=== PATIENT | male | born 1995 | race Two or more races ===

== ENCOUNTER 2018-05-09 23:24 | Inpatient (IN) ==
[2018-05-10] MEDS ORDERED: Dexamethasone Inj 20 MG/5 ML Vial IV.PUSH ONE (00:25)
[2018-05-10] MEDS ORDERED: Sod Chloride 0.9% Inj 1,000 ML IV.SIG SCH (00:30)
--- NOTE | 2018-05-10 01:03 | ED ---
HPI General Chief Complaint: Fever Stated Complaint: Cold,Flu Sore throat Time Seen by Provider: 05/10/18 00:24 History of Present Illness HPI Narrative: This is a 23-year-old male who presents today with complaints of worsening sore throat and difficulty swallowing. Patient was seen 3 days ago and worked up for strep throat and influenza. At that time, he had a negative strep screen and negative influenza a and B test. He reports continued pain in his throat. He states it feels like needles when he swallows. He states he feels as though he is breathing out of a straw. There is associated nausea vomiting. He reports fevers and chills. There are no other complaints at the time of my examination. Related Data Previous Rx's Medication Instructions Recorded amoxicillin-pot clavulanate 1 tab PO Q12H #20 tab 05/05/18 [Augmentin] Allergies Allergy/AdvReac Type Severity Reaction Status Date / Time No Known Allergies Allergy Verified 05/05/18 09:26 Review of Systems ROS: all other systems reviewed are negative Constitutional Reports chills, Reports fever(s) and Reports night sweats Eyes Reports system reviewed and no additional complaints, except as docu ENT Denies headache(s), Denies nasal congestion, Denies nasal discharge, Reports neck pain (Submandibular lymph nodes) and Reports sore throat Cardiovascular Denies system reviewed and no additional complaints, except as docu Respiratory Denies system reviewed and no additional complaints, except as docu Gastrointestinal Denies abdominal pain, Reports nausea and Reports vomiting Genitourinary Reports system reviewed and no additional complaints, except as docu Musculoskeletal Reports system reviewed and no additional complaints, except as docu Neurologic Reports system reviewed and no additional complaints, except as docu and Reports other (No stiff neck. Patient has pain in his throat in the anterior neck.) [facility] Social History Social History Substance History: No History of Abuse Second Hand Smoke Exposure: No Smoking Status: Current every day smoker Tobacco Type: Cigarettes How Often Do You Have a Drink Containing Alcohol: 2 to 4 times a month Recent Travel in [facility] within the Last 8 Weeks: No Recent Out of Country Travel within the Last 8 Weeks: No Immunization History Tetanus Immunization: Unsure Exam Narrative Exam Narrative: GENERAL: Well-nourished, well-developed patient, in no acute respiratory distress.. SKIN: Focused skin assessment warm/dry. HEAD: Normocephalic/atraumatic. EYES: No scleral icterus. No injection or drainage. ENT: Mucosa pink and moist. Posterior pharynx with NECK: Supple, trachea midline. No JVD or lymphadenopathy. CARDIOVASCULAR: Regular rate and rhythm without murmurs, gallops, or rubs. RESPIRATORY: Breath sounds equal bilaterally. No accessory muscle use. GASTROINTESTINAL: Abdomen soft, non-tender, nondistended. MUSCULOSKELETAL: No cyanosis, or edema. BACK: Nontender without obvious deformity. No CVA tenderness. Course Initial Documented Vital Signs Temperature 99.8 F H 05/09/18 23:39 Pulse Rate 99 H 05/09/18 23:39 Respiratory Rate 18 05/09/18 23:39 Blood Pressure 153/68 H 05/09/18 23:39 Pulse Oximetry 96 05/09/18 23:39 Last Documented Vital Signs Temperature 99.8 F H 05/09/18 23:39 Pulse Rate 99 H 05/09/18 23:39 Respiratory Rate 18 05/09/18 23:39 Blood Pressure 153/68 H 05/09/18 23:39 Pulse Oximetry 98 05/10/18 00:32 Discharge Plan Physicians Team ED Provider: Calvin Lemus Primary Care Provider: Primary Care JujuiHeidy Rxs /Orders / Referrals /Forms Prescriptions: No Action amoxicillin-pot clavulanate [Augmentin] 875-125 mg tablet 1 tab PO Q12H Qty: 20 RF: 0 Status ED Status: With Doctor
[2018-05-10 01:05] LABS: Baso # (Auto) 0.1 th/mm3 (0.0-0.2); Baso % (Auto) 0.4 % (0.0-2.0); Eos % (Auto) 0.1 % (0.0-4.0); Hematocrit 44.6 % (39.0-51.0); Hemoglobin 15.8 gm/dL (13.0-17.0); Lymph # (Auto) 1.1 th/mm3 (1.0-4.8); Lymph % (Auto) 5.1 % (9.0-44.0); Mean Corpuscular HGB Conc 35.4 % (32.0-36.0); Mean Corpuscular Hemoglobin 30.3 pg (27.0-34.0); Mean Corpuscular Volume 85.5 fL (80.0-100.0); Mono # (Auto) 1.7 th/mm3 (0.0-0.9); Neut # (Auto) 18.7 th/mm3 (1.8-7.7); Neut % (Auto) 86.4 % (16.0-70.0); Platelet Count 282 th/mm3 (150-450); Red Blood Count 5.21 mil/mm3 (4.50-5.90); Red Cell Distribution Width 12.7 % (11.6-17.2); White Blood Count 21.7 th/mm3 (4.0-11.0)
[2018-05-10 01:18] LABS: Albumin 3.6 g/dL (3.4-5.0); Anion Gap 9 meq/L (5-15); Aspartate Aminotransferase 28 U/L (15-37); Blood Urea Nitrogen 10 mg/dL (7-18); Calcium 8.5 mg/dL (8.5-10.1); Carbon Dioxide 25.5 meq/L (21.0-32.0); Chloride 99 meq/L (98-107); Glomerular Filtration Rate 80 mL/min (>89); Glucose,Random 101 mg/dL (74-106); Potassium 3.3 meq/L (3.5-5.1); Sodium 133 meq/L (136-145)
[2018-05-10 01:19] LABS: Mono Screen Neg (Neg)
[2018-05-10 01:22] LABS: Alanine Aminotransferase 45 U/L (12-78); Alkaline Phosphatase 120 U/L (45-117); Total Protein 8.4 g/dL (6.4-8.2)
[2018-05-10] MEDS ORDERED: Ampicillin/Sulbactam Inj 3 GM in Sodium Chloride 0.9% Inj 100 ML IV.SIG ONE (01:47)
--- NOTE | 2018-05-10 02:13 | CT ---
EXAM DATE: 05/10/2018 2:07 AM EST AGE/SEX: 23 years / Male INDICATIONS: Sore throat past week. Possible abscess. CLINICAL DATA: This is the patient's initial encounter. Patient reports that signs and symptoms have been present for 1 week and indicates a pain score of 5/10. MEDICAL/SURGICAL HISTORY: None. None. RADIATION DOSE: 18.20 CTDI (mGy) COMPARISON: No prior exams available for comparison. TECHNIQUE: Helical acquisition was performed using a multirow detector CT scanner during the adminis tration of 70 ml Omnipaque 350 (iohexol) nonionic water-soluble contrast as a single exam dose. Usi ng automated exposure control and adjustment of the mA and/or kV according to patient size, radiation dose was kept as low as reasonably achievable to obtain optimal diagnostic quality images. DICOM fo rmat image data is available electronically for review and comparison. FINDINGS: Nasopharynx: The nasopharyngeal airway has a normal configuration. No mucosal thickening or mass is seen. Oropharynx: The intrinsic muscles of the tongue are symmetric. Symmetric swelling of the tonsillar p illars. The prevertebral soft tissues are not thickened. Larynx: The supraglottic, glottic, and infraglottic structures are intact. Parapharyngeal: The parapharyngeal space is intact. Salivary Glands: The parotid and submandibular glands are intact. Lymph Nodes: Symmetric diffuse enlargement of cervical lymph nodes Thyroid: Homogeneous enhancement without evidence of nodule. Bones: Unremarkable. Post Contrast: No abnormal areas of enhancement seen. CONCLUSION: 1. Symmetric tonsillar and enlargement and reactive cervical adenopathy. 2. No evidence of abscess. Electronically signed by: Kian Galvez MD 05/10/2018 2:12 AM EST
[2018-05-10] MEDS ORDERED: Bisacodyl 10 MG Supp RECTAL PRN (02:56)
--- NOTE | 2018-05-10 03:28 | XR ---
EXAM DATE: 05/10/2018 3:20 AM EST AGE/SEX: 23 years / Male INDICATIONS: Short of breath. CLINICAL DATA: This is the patient's initial encounter. Patient reports that signs and symptoms have been present for 1 day and indicates a pain score of 5/10. MEDICAL/SURGICAL HISTORY: None. None. COMPARISON: No prior exams available for comparison. FINDINGS: A single AP view of the chest demonstrates the lungs to be symmetrically aerated without evidence of mass, infiltrate or effusion. The cardiomediastinal contours are unremarkable. Osseous structures a re intact. CONCLUSION: Negative examination. Electronically signed by: Kian Galvez MD 05/10/2018 3:27 AM EST
--- NOTE | 2018-05-10 05:26 | P.HPIM ---
History of Present Illness Primary Care Physician: No Primary Care Physician History of Present Illness: 23-year-old male with no significant past medical history who presents with a 4- day history of degree of progressively worsening severe sore throat which feels like needles when he swallows, difficulty swallowing, "feels like he is breathing through a straw", as well as aches all over. He denies any chest pain. He denies any devika shortness of breath. Patient also reports some nausea and nonbloody vomiting which has resolved. Patient visited the ER 3 days ago, received IV steroids, and prescription for Augmentin which he has been taking. He does report a dry cough sometimes productive of white sputum. Inpatient Certification: I certify that the inpatient services were ordered in accordance with Medicare regulations governing the order. This includes certification that hospital inpatient services are reasonable and necessary and in the case of services not specified as inpatient-only under 42 CFR 419.22(n), that they are appropriately provided as inpatient services in accordance to with the 2-midnight benchmark under 43 CFR 412.3(e) Estimated Total Length of Stay (Days): 2 Plans for Post Hospital Care: Home Review of Systems All other systems reviewed negative except as stated in HPI PMFSH - History History Provided By: Patient - Medical / Surgical Hx Neg / Unobtainable Surgical History: No Previous Surgery - Medical History Medical History: Medical History (Last Reviewed 05/05/18 @ 09:42 by Justa Godoy) Patient denies medical problems - Surgical History Surgical History: Surgical History (Last Reviewed 05/05/18 @ 09:42 by Justa Godoy) No history of previous surgery - Family History Family History: Family History (Last Updated 05/10/18 @ 05:22 by Stef Hale MD) Mother Healthy female adult Father Stroke Heart disease - Social History I have reviewed the patient's Social History: Yes - Tobacco History Second Hand Smoke Exposure: Yes Tobacco Use In Past 30 Days: Yes Smoking Status: Current some day smoker Tobacco Type: Cigarettes, E-Cigarettes - Alcohol History How Often Do You Have a Drink Containing Alcohol: Monthly or less - Substance Use History Substance History: Active Abuse - Substance Use Type Marijuana Status: Active Route Used: Inhalation Frequency: every day Reason for Use: Calm Down - Travel History Recent Travel in the [place] Within the Last 8 Weeks: No Recent Travel Out of the Country Within the Last 8 Weeks: No - Immunization History Tetanus Immunization: Never Vaccinated Hx Influenza Vaccine This Season: No Medications and Allergies Active Medications: Active Medications Al Hydroxide/Mg Hydroxide (Milk Of Magnesia Liq) 30 ml PO Q12H PRN PRN Reason: Mild Constipation Albuterol (Duoneb Neb (Prn)) 1 ampul NEB Q2HR NEB PRN PRN Reason: SHORTNESS OF BREATH/WHEEZING Albuterol (Duoneb Neb (Nila)) 1 ampul NEB Q8HR ALT NEB NILA Last Admin: 05/10/18 03:07 Dose: 1 ampul Bisacodyl (Dulcolax Supp) 10 mg RECTAL DAILY PRN PRN Reason: SEVERE CONSITIPATION Ampicillin Sodium/Sulbactam (Sodium 3 gm/ Sodium Chloride) 100 mls @ 200 mls/ hr IV.SIG Q6H NILA Sodium Chloride (Ns Inj) 1,000 mls @ 100 mls/hr IV.CONT .Q10H NILA Lactulose (Lactulose Liq) 30 ml PO DAILY PRN PRN Reason: SEVERE CONSITIPATION Methylprednisolone Sodium Succinate (Solumedrol Inj) 40 mg IV.PUSH Q8HR NILA Sennosides (Senokot) 17.2 mg PO Q12H PRN PRN Reason: Moderate Constipation Sodium Chloride (Ns Flush) 2 ml IV.FLUSH PRN PRN PRN Reason: FLUSH AFTER USING IV ACCESS Allergies Allergy/AdvReac Type Severity Reaction Status Date / Time No Known Allergies Allergy Verified 05/05/18 09:26 Exam Vital signs: Vital Signs 05/09/18 23:39 05/10/18 00:32 05/10/18 02:51 Temperature 99.8 F H 98.5 F Pulse Rate 99 H Respiratory Rate 18 Blood Pressure 153/68 H Pulse Oximetry 96 98 05/10/18 03:07 05/10/18 03:53 05/10/18 04:34 Temperature 97.8 F Pulse Rate 98 H 80 80 Respiratory Rate 18 16 18 Blood Pressure 120/57 L 123/58 L Pulse Oximetry 97 98 Intake & Output 05/09/18 05/09/18 05/10/18 06:59 18:59 05:59 Intake Total 1100 / 1100 Balance 1100 / 1100 Weight 96.8 kg Intake: IV 1100 / 1100 Unasyn Inj 3 GM In NS Inj 100 100 / 100 ML @ 200 mls/hr IV.SIG ONCE ONE Rx#:[id number] NS Inj 1,000 ML @ 1000 mls/hr 1000 / 1000 IV.SIG BOLUS NILA Rx#:[id number] Other: Weight On Admission 96.8 kg Narrative: GENERAL: Patient sitting up in bed. Appears uncomfortable. Alert and oriented x3. SKIN: Warm and dry. HEAD: Atraumatic. Normocephalic. EYES: Pupils equal and round. No scleral icterus. No injection or drainage. ENT: No nasal bleeding or discharge. Mucous membranes pink and moist. Bilateral tonsillar enlargement, left greater than right. NECK: Trachea midline. No JVD. CARDIOVASCULAR: Regular rate and rhythm. RESPIRATORY: No accessory muscle use. Clear to auscultation. Breath sounds equal bilaterally. GASTROINTESTINAL: Abdomen soft, non-tender, nondistended. Hepatic and splenic margins not palpable. MUSCULOSKELETAL: Extremities without clubbing, cyanosis, or edema. No obvious deformities. NEUROLOGICAL: Awake and alert. No obvious cranial nerve deficits. Motor grossly within normal limits. Five out of 5 muscle strength in the arms and legs. Normal speech. PSYCHIATRIC: Appropriate mood and affect; insight and judgment normal. Results - Labs CBC & Chem 7: 05/10/18 00:30 05/10/18 00:30 Labs: Short CBC 05/10/18 Range/Units 00:30 WBC 21.7 H (4.0-11.0) th/mm3 Hgb 15.8 (13.0-17.0) gm/dL Hct 44.6 (39.0-51.0) % Plt Count 282 (150-450) th/mm3 BMP 05/10/18 00:30 Sodium 133 L Potassium 3.3 L Chloride 99 Carbon Dioxide 25.5 BUN 10 Creatinine 1.14 Calcium 8.5 Liver Function 05/10/18 Range/Units 00:30 Total Bilirubin 1.3 H (0.2-1.0) mg/dL AST 28 (15-37) U/L ALT 45 (12-78) U/L Alkaline Phosphatase 120 H (45-117) U/L Albumin 3.6 (3.4-5.0) g/dL - Imaging Impressions Chest X-Ray 05/10/18 00:00 CONCLUSION: Negative examination. Soft Tissue Neck CT 05/10/18 01:25 EST CONCLUSION: 1. Symmetric tonsillar and enlargement and reactive cervical adenopathy. 2. No evidence of abscess. Caprini VTE Risk Assessment Caprini VTE Risk Assessment: No/Low Risk (score <= 1) Caprini Risk Assessment Model: Point Value = 1 Point Value = 2 Point Value = 3 Point Value = 5 Age 41-60 Minor surgery BMI > 25 kg/m2 Swollen legs Varicose veins or History of unexplained or recurrent spontaneous Oral contraceptives or hormone replacement Sepsis (< 1 month) Serious lung disease, including pneumonia (< 1 month) Abnormal pulmonary function Acute myocardial infarction Congestive heart failure (< 1 month) History of inflammatory bowel disease Medical patient at bed rest Age 61-74 Arthroscopic surgery Major open surgery (> 45 min) Laparoscopic surgery (> 45 min) Malignancy Confined to bed (> 72 hours) Immobilizing plaster cast Central venous access Age >= 75 History of VTE Family history of VTE Factor V Leiden Prothrombin [id number] Lupus anticoagulant Anticardiolipin antibodies Elevated serum homocysteine Heparin-induced thrombocytopenia Other congenital or acquired thrombophilia Stroke (< 1 month) Elective arthroplasty Hip, pelvis, or leg fracture Acute spinal cord injury (< 1 month) Prophylaxis Regimen: Total Risk Factor Score Risk Level Prophylaxis Regimen 0-1 Low Early ambulation 2 Moderate Order ONE of the following: *Sequential Compression Device (SCD) *Heparin 5000 units SQ BID 3-4 Higher Order ONE of the following medications: *Heparin 5000 units SQ TID *Enoxaparin/Lovenox 40 mg SQ daily (WT < 150 kg, CrCl > 30 mL/min) *Enoxaparin/Lovenox 30 mg SQ daily (WT < 150 kg, CrCl > 10-29 mL/min) *Enoxaparin/Lovenox 30 mg SQ BID (WT < 150 kg, CrCl > 30 mL/min) AND/OR *Sequential Compression Device (SCD) 5 or more Highest Order ONE of the following medications: *Heparin 5000 units SQ TID (Preferred with Epidurals) *Enoxaparin/Lovenox 40 mg SQ daily (WT < 150 kg, CrCl > 30 mL/min) *Enoxaparin/Lovenox 30 mg SQ daily (WT < 150 kg, CrCl > 10-29 mL/min) *Enoxaparin/Lovenox 30 mg SQ BID (WT < 150 kg, CrCl > 30 mL/min) AND *Sequential Compression Device (SCD) Assessment and Plan - Plan //Acute pharyngitis. Failed outpatient treatment //Leukocytosis //Suspected sepsis. Fevers measuring up to 103 at home. Leukocytosis could be secondary to steroids previously received. CT neck with tonsillar enlargement, no other acute findings. We will start on Unasyn, scheduled IV steroids Due to the failure of outpatient treatment, will consult ENT //Hypokalemia. Likely secondary to dehydration. Replace. Monitor. Discussed Condition With: Patient, nurse, ED physician. H&P: Quality - VTE Deep Vein Thrombosis/Pulmonary Embolism Present on Admission: No
[2018-05-10] MEDS ORDERED: Sodium Chloride 0.9% 2 ML Flush PRN IV.FLUSH (05:28)
[2018-05-10] MEDS: Potassium Chlor 10 mEq Premix 10 MEQ/100 ML PIGGYBACK IV.SIG SCH ×3 (05:55→12:32)
[2018-05-10] MEDS: MethylPREDNISolone Sod Succinate Inj 40 MG/ML Vial IV.PUSH SCH ×3 (05:55→21:08)
[2018-05-10] MEDS: Sod Chloride 0.9% Inj 1,000 ML IV.CONT SCH ×2 (05:56→16:47)
[2018-05-10] MEDS ORDERED: Influenza (Quadrivalent) Vaccine 0.5 ML Syringe IM ONE (09:00)
[2018-05-10] MEDS: Ampicillin/Sulbactam Inj 3 GM in Sodium Chloride 0.9% Inj 100 ML IV.SIG SCH ×2 (09:16→16:31)
[2018-05-10] MEDS: Sodium Chloride 0.9% 2 ML Flush BID IV.FLUSH SCH ×2 (09:20→21:10)
[2018-05-10] MEDS ORDERED: Phenol 1.4% 180 ML Spray Bottle OROPHARYNG PRN (12:00)
--- NOTE | 2018-05-10 13:56 | P.PN ---
Subjective Interval history: Follow-up for pharyngitis: Patient states he is feeling a little better, able to take some fluids. Still with sore throat, no fever. Did have some chills overnight, no fever. T-99.8. No n/v/d. Mother at bsd Physical Exam Vital signs: Vital Signs 05/09/18 23:39 05/10/18 00:32 05/10/18 02:51 Temperature 99.8 F H 98.5 F Pulse Rate 99 H Respiratory Rate 18 Blood Pressure 153/68 H Pulse Oximetry 96 98 05/10/18 03:07 05/10/18 03:53 05/10/18 04:34 Temperature 97.8 F Pulse Rate 98 H 80 80 Respiratory Rate 18 16 18 Blood Pressure 120/57 L 123/58 L Pulse Oximetry 97 98 05/10/18 08:00 05/10/18 11:56 05/10/18 12:00 Temperature 97.1 F L 97.8 F Pulse Rate 67 68 73 Respiratory Rate 20 16 18 Blood Pressure 137/62 130/70 Pulse Oximetry 97 95 Intake & Output 05/09/18 05/10/18 05/10/18 19:59 06:59 18:59 Intake Total 200 / 200 Output Total Balance 200 / 200 Weight Intake: IV 200 / 200 Unasyn Inj 3 GM In NS Inj 100 ML @ 200 mls/hr IV.SIG ONCE ONE Rx#:[id number] KCl 10 mEq Premix Inj 10 meq In 200 / 200 100 ml @ 100 mls/hr IV.SIG Q1H RICHARD Rx#:[id number] NS Inj 1,000 ML @ 1000 mls/hr IV.SIG BOLUS RICHARD Rx#:[id number] Oral Output: Urine Other: Weight On Admission Narrative: GENERAL: Patient sitting up in bed. Appears uncomfortable. Alert and oriented x3. SKIN: Warm and dry. HEAD: Atraumatic. Normocephalic. EYES: Pupils equal and round. No scleral icterus. No injection or drainage. ENT: + neck swelling. No nasal bleeding or discharge. Mucous membranes pink and moist. Bilateral tonsillar enlargement, left greater than right. Pus noted to left tonsil NECK: Trachea midline. No JVD. CARDIOVASCULAR: Regular rate and rhythm. RESPIRATORY: No accessory muscle use. Clear to auscultation. Breath sounds equal bilaterally. GASTROINTESTINAL: Abdomen soft, non-tender, nondistended. Hepatic and splenic margins not palpable. MUSCULOSKELETAL: Extremities without clubbing, cyanosis, or edema. No obvious deformities. NEUROLOGICAL: Awake and alert. No obvious cranial nerve deficits. Motor grossly within normal limits. Five out of 5 muscle strength in the arms and legs. Normal speech. PSYCHIATRIC: Appropriate mood and affect; insight and judgment normal. Results - Labs CBC & Chem 7: 05/10/18 00:30 05/10/18 00:30 Laboratory Results - last 24 hr 05/10/18 05/10/18 05/10/18 00:30 00:30 00:30 WBC 21.7 H RBC 5.21 Hgb 15.8 Hct 44.6 MCV 85.5 MCH 30.3 MCHC 35.4 RDW 12.7 Plt Count 282 MPV 8.0 Neut % (Auto) 86.4 H Lymph % (Auto) 5.1 L [place] % (Auto) 8.0 Eos % (Auto) 0.1 Baso % (Auto) 0.4 Neut # (Auto) 18.7 H Lymph # (Auto) 1.1 [place] # (Auto) 1.7 H Eos # (Auto) 0.0 Baso # (Auto) 0.1 WBC Differential . Differential Comment Auto diff final Sodium 133 L Potassium 3.3 L Chloride 99 Carbon Dioxide 25.5 Anion Gap 9 BUN 10 Creatinine 1.14 Estimated GFR 80 L Random Glucose 101 Lactic Acid 0.7 Calcium 8.5 Total Bilirubin 1.3 H AST 28 ALT 45 Alkaline Phosphatase 120 H Total Protein 8.4 H Albumin 3.6 Monoscreen 05/10/18 00:55 WBC RBC Hgb Hct MCV MCH MCHC RDW Plt Count MPV Neut % (Auto) Lymph % (Auto) [place] % (Auto) Eos % (Auto) Baso % (Auto) Neut # (Auto) Lymph # (Auto) [place] # (Auto) Eos # (Auto) Baso # (Auto) WBC Differential Differential Comment Sodium Potassium Chloride Carbon Dioxide Anion Gap BUN Creatinine Estimated GFR Random Glucose Lactic Acid Calcium Total Bilirubin AST ALT Alkaline Phosphatase Total Protein Albumin Monoscreen Neg Microbiology 05/10/18 00:35 Throat Group A Streptococcus Screen (ALEXIS) - Final - Imaging Impressions Chest X-Ray 05/10/18 00:00 CONCLUSION: Negative examination. Soft Tissue Neck CT 05/10/18 01:25 EST CONCLUSION: 1. Symmetric tonsillar and enlargement and reactive cervical adenopathy. 2. No evidence of abscess. Assessment and Plan - Assessment (1) Acute pharyngitis Code(s): J02.9 - Acute pharyngitis, unspecified Status: Acute (2) Leukocytosis Code(s): D72.829 - Elevated white blood cell count, unspecified Status: Acute (3) Hypokalemia Code(s): E87.6 - Hypokalemia Status: Acute - Plan 23-year-old male with no significant past medical history who presents with a 4- day history of degree of progressively worsening severe sore throat which feels like needles when he swallows, difficulty swallowing, "feels like he is breathing through a straw", as well as aches all over. Patient also reported some nausea and nonbloody vomiting which has resolved. Patient visited the ER 3 days ago, received IV steroids, and prescription for Augmentin which he has been taking. He does report a dry cough sometimes productive of white sputum. Acute pharyngitis Failed outpatient treatment Leukocytosis, suspected sepsis. Fevers measuring up to 103 at home, slightly tachycardic CT neck with tonsillar enlargement, no other acute findings. Continue IV steroids -Strep negative, cultures no growth up-to-date Due to the failure of outpatient treatment, ENT consult -clear liquid diet -Cepacol PRN -d/w Dr. Mckeon, recommends to change to Clindamycin 900 mg IV q 8 at least 24 hours and steroids, then ok to dc on oral Clindamycin -will obtain throat culture Leukocytosis, sepsis vs steroids as OP -follow cbc Hypokalemia Likely secondary to dehydration -Replace K and follow BMP in am DVT prophylaxis-pt. ambulatory Repeat labs in am Code Status: Full code Discussed Condition With: RN, pt and his mom, CM Discharge Planning: DC on Friday, needs at least 24 hours on Clinda
[2018-05-10] MEDS: Clindamycin 900 mg/NS Premix 900 MG/50 ML PIGGYBACK IV.SIG SCH (16:52)
--- NOTE | 2018-05-10 17:58 | MB ---
cc: Nathan Mckeon MD DATE: 05/10/2018 CHIEF COMPLAINT: Tonsillitis. HISTORY OF PRESENT ILLNESS: The patient is a pleasant 23-year-old who has failed treatment for tonsillitis with Augmentin. As an inpatient, he is noted to have refractory tonsillitis refractory to antibiotics. CT scan shows no abscess. He is currently about 50% better than he was prior to admission. He is on penicillin based antibiotics, as well as steroids. PHYSICAL EXAMINATION: On examination tonsils are large and inflamed. There is no abscess. Airway is widely patent on flexible fiberoptic laryngoscopy. ASSESSMENT AND PLAN: I recommend switching the patient's antibiotics to Clindamycin 900 mg IV every 8 hours. I also recommend culturing the tonsils with culture and sensitivities. I recommend the patient be 24 hours of high dose IV clindamycin prior to being discharged with clindamycin as an oral dose of 300 mg p.o. t.i.d. for 2 weeks and a Medrol Dosepak. However, again I recommend the patient be switched to IV Clindamycin 900 mg IV every 8 hours now. Nathan Mckeon MD PCC/te/pc , 03:00 PM , 03:05 PM
[2018-05-11] MEDS: Clindamycin 900 mg/NS Premix 900 MG/50 ML PIGGYBACK IV.SIG SCH ×4 (00:07→23:18)
[2018-05-11] MEDS: Sod Chloride 0.9% Inj 1,000 ML IV.CONT SCH ×3 (00:08→21:20)
[2018-05-11 05:49] LABS: Baso % (Auto) 0.1 % (0.0-2.0); Hematocrit 39.4 % (39.0-51.0); Hemoglobin 14.3 gm/dL (13.0-17.0); Lymph # (Auto) 1.4 th/mm3 (1.0-4.8); Lymph % (Auto) 6.9 % (9.0-44.0); Mean Corpuscular Hemoglobin 30.9 pg (27.0-34.0); Mean Corpuscular Volume 84.9 fL (80.0-100.0); Mean Platelet Volume 7.8 fL (7.0-11.0); Mono # (Auto) 0.9 th/mm3 (0.0-0.9); Mono % (Auto) 4.5 % (0.0-8.0); Neut # (Auto) 18.1 th/mm3 (1.8-7.7); Neut % (Auto) 88.5 % (16.0-70.0); Platelet Count 340 th/mm3 (150-450); Red Blood Count 4.64 mil/mm3 (4.50-5.90); Red Cell Distribution Width 12.6 % (11.6-17.2); White Blood Count 20.5 th/mm3 (4.0-11.0)
[2018-05-11 06:01] LABS: Mean Corpuscular HGB Conc 36.3 % (32.0-36.0)
[2018-05-11] MEDS: MethylPREDNISolone Sod Succinate Inj 40 MG/ML Vial IV.PUSH SCH ×3 (06:24→21:16)
[2018-05-11 06:25] LABS: Alanine Aminotransferase 47 U/L (12-78); Albumin 2.9 g/dL (3.4-5.0); Alkaline Phosphatase 100 U/L (45-117); Anion Gap 9 meq/L (5-15); Aspartate Aminotransferase 29 U/L (15-37); Blood Urea Nitrogen 11 mg/dL (7-18); Calcium 8.5 mg/dL (8.5-10.1); Carbon Dioxide 23.4 meq/L (21.0-32.0); Chloride 107 meq/L (98-107); Glomerular Filtration Rate Greater Than 89 mL/min (>89); Glucose,Random 143 mg/dL (74-106); Potassium 4.5 meq/L (3.5-5.1); Sodium 139 meq/L (136-145); Total Protein 7.5 g/dL (6.4-8.2)
[2018-05-11 07:28] LABS: Lymphocytes 9 % (9-44); Monocytes 4 % (0-8); Platelet Estimate Normal (Normal); Platelet Morphology Normal (Normal)
[2018-05-11 07:29] LABS: RBC Morphology Normal (Normal)
--- NOTE | 2018-05-11 08:48 | P.PN ---
Subjective Interval history: Follow-up for pharyngitis: pt. seen and examined, slept well. No fever, no chills. Voice less muffled. Sore throat better. No cp, no sob. No n/v. Loose stools, small amount Physical Exam Vital signs: Vital Signs 05/10/18 11:56 05/10/18 12:00 05/10/18 16:00 Temperature 97.8 F 98.0 F Pulse Rate 68 73 67 Respiratory Rate 16 18 18 Blood Pressure 130/70 136/62 Pulse Oximetry 95 95 05/10/18 20:00 05/10/18 20:33 05/11/18 00:00 Temperature 97.8 F 97.5 F L Pulse Rate 81 74 60 Respiratory Rate 18 16 17 Blood Pressure 138/73 100/59 L Pulse Oximetry 96 95 05/11/18 04:00 Temperature 97.3 F L Pulse Rate 66 Respiratory Rate 17 Blood Pressure 143/81 H Pulse Oximetry 95 Intake & Output 05/10/18 05/11/18 05/11/18 18:59 06:59 18:59 Intake Total 1200 / 1200 2514 / 2514 Balance 1200 / 1200 2514 / 2514 Weight 96.9 kg Intake: IV 450 / 450 1674 / 1674 NS Inj 1,000 ML @ 100 mls/hr IV 1624 / 1624 .CONT .Q10H RICHARD Rx#:[id number] Unasyn Inj 3 GM In NS Inj 100 100 / 100 ML @ 200 mls/hr IV.SIG Q6H RICHARD Rx#:[id number] Cleocin 900 mg/NS Premix 900 mg 50 / 50 50 / 50 In 50 ml @ 100 mls/hr IV.SIG Q8H RICHARD Rx#:[id number] KCl 10 mEq Premix Inj 10 meq In 300 / 300 100 ml @ 100 mls/hr IV.SIG Q1H RICHARD Rx#:[id number] Oral 840 / 840 Other 750 / 750 Other: # Voids 2 4 # Bowel Movements 1 Narrative: GENERAL: Patient sitting up in bed. Appears uncomfortable. Alert and oriented x3. SKIN: Warm and dry. HEAD: Atraumatic. Normocephalic. EYES: Pupils equal and round. No scleral icterus. No injection or drainage. ENT: + neck swelling. No nasal bleeding or discharge. Mucous membranes pink and moist. Bilateral tonsillar enlargement is improved, left greater than right. NECK: Trachea midline. No JVD. CARDIOVASCULAR: Regular rate and rhythm. RESPIRATORY: No accessory muscle use. Clear to auscultation. Breath sounds equal bilaterally. GASTROINTESTINAL: Abdomen soft, non-tender, nondistended. Hepatic and splenic margins not palpable. MUSCULOSKELETAL: Extremities without clubbing, cyanosis, or edema. No obvious deformities. NEUROLOGICAL: Awake and alert. No obvious cranial nerve deficits. Motor grossly within normal limits. Five out of 5 muscle strength in the arms and legs. Normal speech. PSYCHIATRIC: Appropriate mood and affect; insight and judgment normal. Results - Labs CBC & Chem 7: 05/11/18 04:30 05/11/18 04:30 Laboratory Results - last 24 hr 05/11/18 05/11/18 04:30 04:30 WBC 20.5 H RBC 4.64 Hgb 14.3 Hct 39.4 MCV 84.9 MCH 30.9 MCHC 36.3 H RDW 12.6 Plt Count 340 MPV 7.8 Prelim Diff (Auto) Slide review pending Neut % (Auto) 88.5 H Lymph % (Auto) 6.9 L Cedar % (Auto) 4.5 Eos % (Auto) 0.0 Baso % (Auto) 0.1 Neut # (Auto) 18.1 H Lymph # (Auto) 1.4 Cedar # (Auto) 0.9 Eos # (Auto) 0.0 Baso # (Auto) 0.0 WBC Differential Manual diff final Seg Neuts % (Manual) 64 Band Neuts % (Manual) 23 H Lymphocytes % (Manual) 9 Monocytes % (Manual) 4 Abs Neuts (Manual) 17.8 H Differential Comment . Platelet Estimate Normal Platelet Morphology Normal RBC Morphology Normal Sodium 139 Potassium 4.5 D Chloride 107 D Carbon Dioxide 23.4 Anion Gap 9 BUN 11 Creatinine 0.70 Estimated GFR Greater than 89 Random Glucose 143 H Calcium 8.5 Total Bilirubin 0.4 AST 29 ALT 47 Alkaline Phosphatase 100 Total Protein 7.5 D Albumin 2.9 L D Assessment and Plan - Assessment (1) Acute pharyngitis Code(s): J02.9 - Acute pharyngitis, unspecified Status: Acute (2) Leukocytosis Code(s): D72.829 - Elevated white blood cell count, unspecified Status: Acute (3) Hypokalemia Code(s): E87.6 - Hypokalemia Status: Acute - Plan 23-year-old male with no significant past medical history who presents with a 4- day history of degree of progressively worsening severe sore throat which feels like needles when he swallows, difficulty swallowing, "feels like he is breathing through a straw", as well as aches all over. Patient also reported some nausea and nonbloody vomiting which has resolved. Patient visited the ER 3 days ago, received IV steroids, and prescription for Augmentin which he has been taking. He does report a dry cough sometimes productive of white sputum. Acute pharyngitis Failed outpatient treatment Leukocytosis, suspected sepsis. Fevers measuring up to 103 at home, slightly tachycardic CT neck with tonsillar enlargement, no other acute findings. Continue IV steroids -Strep negative, cultures no growth up-to-date Due to the failure of outpatient treatment, ENT consult -clear liquid diet -Cepacol PRN -d/w Dr. Mckeon, recommends to change to Clindamycin 900 mg IV q 8 at least 24 hours and steroids, then ok to dc on oral Clindamycin. -throat culture -results pending -Symptoms improving, will advance diet as tolerated. Leukocytosis, sepsis vs steroids as OP -WBC still elevated, likely secondary to steroids. -Follow CBC Hypokalemia Likely secondary to dehydration -Resolved Add Lactinex DVT prophylaxis-pt. ambulatory CBC in a.m. Plan to discharge tomorrow Code Status: Full code Discussed Condition With: RN, pt, Discharge Planning: DC on Friday, needs at least 24 hours on [facility]
[2018-05-11] MEDS: Sodium Chloride 0.9% 2 ML Flush BID IV.FLUSH SCH ×2 (10:04→21:16)
[2018-05-11] MEDS: Lactobacillus Acidophilus/L. Spores Tablet PO SCH ×3 (10:08→17:38)
[2018-05-12] MEDS: MethylPREDNISolone Sod Succinate Inj 40 MG/ML Vial IV.PUSH SCH (05:11)
[2018-05-12] MEDS: Sod Chloride 0.9% Inj 1,000 ML IV.CONT SCH (05:15)
[2018-05-12 06:28] LABS: Hematocrit 39.7 % (39.0-51.0); Hemoglobin 13.8 gm/dL (13.0-17.0); Mean Corpuscular HGB Conc 34.8 % (32.0-36.0); Mean Corpuscular Hemoglobin 30.2 pg (27.0-34.0); Mean Corpuscular Volume 86.8 fL (80.0-100.0); Platelet Count 330 th/mm3 (150-450); Red Blood Count 4.57 mil/mm3 (4.50-5.90); Red Cell Distribution Width 12.6 % (11.6-17.2); White Blood Count 19.7 th/mm3 (4.0-11.0)
[2018-05-12] MEDS: Lactobacillus Acidophilus/L. Spores Tablet PO SCH (08:33)
[2018-05-12] MEDS: Clindamycin 900 mg/NS Premix 900 MG/50 ML PIGGYBACK IV.SIG SCH (08:33)
[2018-05-12] MEDS: Sodium Chloride 0.9% 2 ML Flush BID IV.FLUSH SCH (08:33)
--- NOTE | 2018-05-12 11:23 | P.PN ---
Subjective Interval history: Follow-up failed outpatient treatment for tonsillitis/pharyngitis May 12, 2018-patient seen and examined, denies any throat pain. Tolerated p.o. without any complication of odynophagia. Currently afebrile. Patient's mom is concerned about the cost of the antibiotic Physical Exam Vital signs: Vital Signs 05/11/18 12:00 05/11/18 16:00 05/11/18 20:00 Temperature 97.8 F 97.9 F 97.7 F Pulse Rate 56 L 75 67 Respiratory Rate 18 Blood Pressure 120/68 125/62 141/73 H Pulse Oximetry 97 97 95 05/12/18 00:00 05/12/18 04:00 05/12/18 08:00 Temperature 97.4 F L 97.5 F L 97.8 F Pulse Rate 65 62 73 Respiratory Rate 18 20 Blood Pressure 118/57 L 134/74 136/64 Pulse Oximetry 96 95 98 Intake & Output 05/11/18 05/12/18 05/12/18 18:59 06:59 18:59 Intake Total 1036 / 1036 2274 / 2274 311 / 311 Output Total 1600 / 1600 Balance -564 / -564 2274 / 2274 311 / 311 Intake: IV 476 / 476 1794 / 1794 311 / 311 NS Inj 1,000 ML @ 100 mls/hr IV 376 / 376 1739 / 1739 261 / 261 .CONT .Q10H R[facility]ARD Rx#:[id number] Cleocin 900 mg/NS Premix 900 mg 100 / 100 55 / 55 50 / 50 In 50 ml @ 100 mls/hr IV.SIG Q8H RICHARD Rx#:[id number] Oral 560 / 560 480 / 480 Output: Urine 1600 / 1600 Other: # Voids 4 Date of Last Bowel Movement 05/11/18 # Bowel Movements 0 Narrative: GENERAL: NAD SKIN: Warm and dry. HEAD: Atraumatic. Normocephalic. EYES: Pupils equal and round. No scleral icterus. No injection or drainage. ENT: + neck swelling. No nasal bleeding or discharge. Mucous membranes pink and moist. Bilateral tonsillar enlargement is improved, left greater than right. NECK: Trachea midline. No JVD. CARDIOVASCULAR: Regular rate and rhythm. RESPIRATORY: No accessory muscle use. Clear to auscultation. Breath sounds equal bilaterally. GASTROINTESTINAL: Abdomen soft, non-tender, nondistended. Hepatic and splenic margins not palpable. MUSCULOSKELETAL: Extremities without clubbing, cyanosis, or edema. No obvious deformities. NEUROLOGICAL: Awake and alert. No obvious cranial nerve deficits. Motor grossly within normal limits. Five out of 5 muscle strength in the arms and legs. Normal speech. PSYCHIATRIC: Appropriate mood and affect; insight and judgment normal. Results - Labs CBC & Chem 7: 05/12/18 05:00 05/11/18 04:30 Laboratory Results - last 24 hr 05/12/18 05:00 WBC 19.7 H RBC 4.57 Hgb 13.8 Hct 39.7 MCV 86.8 MCH 30.2 MCHC 34.8 RDW 12.6 Plt Count 330 MPV 8.0 Microbiology 05/10/18 00:15 Blood - Peripheral Aerobic Blood Culture - Preliminary No growth in 2 days 05/10/18 00:15 Blood - Peripheral Anaerobic Blood Culture - Preliminary No growth in 2 days 05/10/18 00:30 Blood - Peripheral Aerobic Blood Culture - Preliminary No growth in 2 days 05/10/18 00:30 Blood - Peripheral Anaerobic Blood Culture - Preliminary No growth in 2 days 05/10/18 00:35 Throat Group A Streptococcus Screen/Cult - Preliminary Beta colonies? 05/10/18 17:00 Throat Throat Culture - Preliminary - Procedures None Assessment and Plan - Assessment (1) Acute pharyngitis Code(s): J02.9 - Acute pharyngitis, unspecified Status: Acute (2) Leukocytosis Code(s): D72.829 - Elevated white blood cell count, unspecified Status: Acute (3) Hypokalemia Code(s): E87.6 - Hypokalemia Status: Acute - Plan 23-year-old man with Acute pharyngitis-improving Failed outpatient treatment Leukocytosis, suspected sepsis-resolved CT neck with tonsillar enlargement, no other acute findings. -Strep negative -Appreciate input from ENT -Treated with IV clindamycin, steroids Will discharge home on clindamycin 300 mg 3 times daily times 2 weeks Hypokalemia Likely secondary to dehydration -Resolved DVT prophylaxis-pt. ambulatory
--- NOTE | 2018-05-12 11:28 | P.DS ---
Date of admission: 05/10/18 02:55 Primary care physician: No Primary Care Physician Brief History from admission: 23-year-old male with no significant past medical history who presents with a 4- day history of degree of progressively worsening severe sore throat which feels like needles when he swallows, difficulty swallowing, "feels like he is breathing through a straw", as well as aches all over. He denies any chest pain. He denies any devika shortness of breath. Patient also reports some nausea and nonbloody vomiting which has resolved. Patient visited the ER 3 days ago, received IV steroids, and prescription for Augmentin which he has been taking. He does report a dry cough sometimes productive of white sputum. DS: Diagnosis - Discharge Diagnosis (1) Acute pharyngitis Status: Acute (2) Leukocytosis Status: Acute (3) Hypokalemia Status: Acute DS: Medications - Discharge Medications Prescriptions: acidophilus-sporogenes [Acidophilus Ex Str (L. sporog)] 1 tab PO TID 10 Days # 30 tab clindamycin HCl [Cleocin HCl] 300 mg PO TID 14 Days #42 cap prednisone 10 mg PO DAILY 10 Days #10 tab DS: Summary Hospital Course: Patient admitted with failed outpatient treatment for tonsillitis/pharyngitis for which she was started on IV clindamycin and IV steroids with consultation to ENT. Culture reports were negative prior to discharge. Patient conditions improved and is tolerated p.o. without any complications of nausea vomiting as well as odynophagia. He will be discharged home on clindamycin 150 mg 2 tablets q. 8 hours x 2 weeks along with steroid taper. Patient advised to follow-up with ENT. - Time Spent with Patient Total time spent providing and/or coordinating discharge services: Less than 30 minutes - Quality: VTE Deep Vein Thrombosis/Pulmonary Embolism Present on Admission: No Exam Vital signs: Vital Signs 05/11/18 12:00 05/11/18 16:00 05/11/18 20:00 Temperature 97.8 F 97.9 F 97.7 F Pulse Rate 56 L 75 67 Respiratory Rate 18 18 18 Blood Pressure 120/68 125/62 141/73 H Pulse Oximetry 97 97 95 05/12/18 00:00 05/12/18 04:00 05/12/18 08:00 Temperature 97.4 F L 97.5 F L 97.8 F Pulse Rate 65 62 73 Respiratory Rate 18 18 20 Blood Pressure 118/57 L 134/74 136/64 Pulse Oximetry 96 95 98 Intake & Output 05/11/18 05/12/18 05/12/18 18:59 06:59 18:59 Intake Total 1036 / 1036 2274 / 2274 311 / 311 Output Total 1600 / 1600 Balance -564 / -564 2274 / 2274 311 / 311 Intake: IV 476 / 476 1794 / 1794 311 / 311 NS Inj 1,000 ML @ 100 mls/hr IV 376 / 376 1739 / 1739 261 / 261 .CONT .Q10H R[facility]ARD Rx#:[id number] Cleocin 900 mg/NS Premix 900 mg 100 / 100 55 / 55 50 / 50 In 50 ml @ 100 mls/hr IV.SIG Q8H RICHARD Rx#:[id number] Oral 560 / 560 480 / 480 Output: Urine 1600 / 1600 Other: # Voids 4 Date of Last Bowel Movement 05/11/18 # Bowel Movements 0 Narrative: GENERAL: NAD SKIN: Warm and dry. HEAD: Atraumatic. Normocephalic. EYES: Pupils equal and round. No scleral icterus. No injection or drainage. ENT: + neck swelling. No nasal bleeding or discharge. Mucous membranes pink and moist. Bilateral tonsillar enlargement is improved, left greater than right. NECK: Trachea midline. No JVD. CARDIOVASCULAR: Regular rate and rhythm. RESPIRATORY: No accessory muscle use. Clear to auscultation. Breath sounds equal bilaterally. GASTROINTESTINAL: Abdomen soft, non-tender, nondistended. Hepatic and splenic margins not palpable. MUSCULOSKELETAL: Extremities without clubbing, cyanosis, or edema. No obvious deformities. NEUROLOGICAL: Awake and alert. No obvious cranial nerve deficits. Motor grossly within normal limits. Five out of 5 muscle strength in the arms and legs. Normal speech. PSYCHIATRIC: Appropriate mood and affect; insight and judgment normal. Results Procedures completed during hospitalization: None Labs on day of discharge: Labs from last 24 hours 05/12/18 05:00 WBC 19.7 H RBC 4.57 Hgb 13.8 Hct 39.7 MCV 86.8 MCH 30.2 MCHC 34.8 RDW 12.6 Plt Count 330 MPV 8.0 Preliminary micro results at discharge 05/10/18 00:15 Aerobic Blood Culture - Preliminary Blood - Peripheral No growth in 2 days Anaerobic Blood Culture - Preliminary No growth in 2 days 05/10/18 00:30 Aerobic Blood Culture - Preliminary Blood - Peripheral No growth in 2 days Anaerobic Blood Culture - Preliminary No growth in 2 days 05/10/18 00:35 Group A Streptococcus Screen/Cult - Preliminary Throat Beta colonies? 05/10/18 17:00 Throat Culture - Preliminary Throat - Impressions ITS Impressions Chest X-Ray 05/10/18 00:00 CONCLUSION: Negative examination. Soft Tissue Neck CT 05/10/18 01:25 EST CONCLUSION: 1. Symmetric tonsillar and enlargement and reactive cervical adenopathy. 2. No evidence of abscess. Discharge Plan - Discharge Disposition Patient Disposition: Discharge Home - Discharge Condition Condition: Stable - Discharge Order Discharge Orders: Discharge Order (Routine); Ordered 05/12/18 Ordered By: Nimesh Mcdaniels - Discharge Details Anticipated Discharge Date: 05/12/18 - Physicians Team Primary Care Provider: Primary Care Heidy Tomlinson Attending Provider: Nimesh Mcdaniels Other Providers: Nathan Mckeon MD
== END 2018-05-12 12:00 | disposition home or self-care (01) ==
LOC: NEPC 23:24 → NEDA 05-10 02:55 → N04 05-10 04:05
PROVIDERS: ADMIT Hospitalist; ATTEND Hospitalist